=== PATIENT | female | born 1950 | race Caucasian/White ===

== ENCOUNTER 2018-09-07 10:27 | Emergency (ER) | payer MEDICARE, MEDICAID ==
[~2018-09-07] VITALS: Ht 157.5 cm; Wt 80.0 kg
[~2018-09-07 10:27] MED LIST: CARV-50 PO; COU4T PO; ESOM40CA PO; FENT1PAT11 TD; LYR25C PO; OXYC-658 PO; OXYC5CAP19 PO; TRAZ-218 PO; TRAZ-91 PO; WARF5TAB PO; ZOLP10TA PO; ZOLP5TAB8 PO
--- NOTE | 2018-09-07 10:39 | NUR ---
pt is resting quietly on gurney, resp even and unlabored, talking on phone with family
--- NOTE | 2018-09-07 11:20 | NUR ---
tova méndez pa at bedside to eval pt
--- NOTE | 2018-09-07 12:24 | NUR ---
unable to discharge pt at this time as she cannot get up due to pain to rt hip, pt has caregiver for 2 more hours and said she could get her neighbor to help, also has daughter that lives in the area "I don't know about her though", pt is unable to sit up or stand due to pain, Giana CHARLES aware, pt also said she has "low dose" percocet at home
[2018-09-07] MEDS ORDERED: HYDROcodone/acetaminophen 10/325mg tab PO ONE (12:35)
--- NOTE | 2018-09-07 12:42 | NUR ---
Giana Martin PA at bedside to discuss admission with pt, pt is unable to care for self as she normally would, pt is unable to sit up or stand without assist due to pain in rt hip.
[2018-09-07 13:20] LABS: BASOPHILS % (AUTO) 0.6 % (0-1); EOSINOPHILS # (AUTO) 0.1 X10'3 (0-0.9); EOSINOPHILS % (AUTO) 1.4 % (0-6); HEMATOCRIT 35.8 % (35.0-45.0); HEMOGLOBIN 11.5 g/dl (12.0-16.0); LYMPHOCYTES # (AUTO) 1.3 X10'3 (1.1-4.8); LYMPHOCYTES % (AUTO) 20.4 % (21-51); MEAN CORPUSCULAR HEMOGLOBIN 29.2 PG (27.0-31.0); MEAN CORPUSCULAR HGB CONC 32.2 % (33.0-36.5); MEAN CORPUSCULAR VOLUME 90.6 FL (78-98); MEAN PLATELET VOLUME 7.9 FL (7.4-10.4); MONOCYTES # (AUTO) 0.4 X10'3 (0-0.9); MONOCYTES % (AUTO) 6.1 % (2-12); NEUTROPHILS # (AUTO) 4.4 X10'3 (1.8-7.7); NEUTROPHILS % (AUTO) 71.5 % (42-75); PLATELET COUNT 268 X10'3 (140-440); RED BLOOD COUNT 3.94 X10'6 (4.20-5.60); RED CELL DISTRIBUTION WIDTH 14.4 % (11.5-14.5); WHITE BLOOD COUNT 6.2 X10'3 (4.5-11.0)
--- NOTE | 2018-09-07 13:28 | NUR ---
pt. medicated with pain medication and still 8/10 pain in rt. hip. Still unable to sit up or stand.
[2018-09-07 13:36] LABS: ALANINE AMINOTRANSFERASE 22 U/L (12-78); ALBUMIN 3.2 G/DL (3.4-5.0); ALBUMIN/GLOBULIN RATIO 0.9 (1.1-1.5); ALKALINE PHOSPHATASE 62 IU/L (46-116); ANION GAP 8 (8-16); ASPARTATE AMINO TRANSFERASE 23 U/L (10-37); BILIRUBIN,TOTAL 0.2 MG/DL (0.1-1.0); BLOOD UREA NITROGEN 13 MG/DL (7-18); BUN/CREATININE RATIO 12.4 (6.6-38.0); CALCIUM 8.9 MG/DL (8.5-10.1); CHLORIDE 105 MMOL/L (99-107); CREATININE 1.05 MG/DL (0.40-0.90); GLUCOSE 93 MG/DL (70-104); POTASSIUM 4.8 MMOL/L (3.5-5.1); SODIUM 142 MMOL/L (135-145); TOTAL CARBON DIOXIDE 29.4 MMOL/L (24-32); TOTAL PROTEIN 6.6 G/DL (6.4-8.2); eGFR 52 ML/MIN
--- NOTE | 2018-09-07 14:51 | NUR ---
PT. AMBULATED TO [facility] WITH ASSIST. WANTS TO GO HOME.
[2018-09-07 15:14] VITALS: BP 95/51
== END 2018-09-07 15:16 | disposition home or self-care (01) ==
LOC: ER 10:28
DX: G89.29 Other chronic pain (principal); M25.551 Pain in right hip; I25.2 Old myocardial infarction; I11.0 Hypertensive heart disease with heart failure; I50.9 Heart failure, unspecified; Z88.6 Allergy status to analgesic agent; Z91.018 Allergy to other foods; Z90.49 Acquired absence of other specified parts of digestive tract; Z98.61 Coronary angioplasty status; X50.1XXA Overexertion from prolonged static or awkward postures, initial encounter; Y93.89 Activity, other specified; Y92.89 Other specified places as the place of occurrence of the external cause; Y99.8 Other external cause status
CPT/HCPCS: 36415; 71045; 73502; 80053; 85025; 99284

== ENCOUNTER 2019-11-08 14:10 | Outpatient (CLI) | payer MEDICARE, MEDICAID ==
[~2019-11-08] VITALS: Ht 157.5 cm; Wt 89.8 kg
[~2019-11-08 14:10] MED LIST changes: -TRAZ-218 PO; +TRAZ-251 PO
[2019-11-08 14:56] LABS: BASOPHILS # (AUTO) 0.1 X10'3 (0-0.2); BASOPHILS % (AUTO) 0.7 % (0-1); EOSINOPHILS # (AUTO) 0.1 X10'3 (0-0.9); EOSINOPHILS % (AUTO) 1.5 % (0-6); LYMPHOCYTES # (AUTO) 1.6 X10'3 (1.1-4.8); LYMPHOCYTES % (AUTO) 20.6 % (21-51); MEAN CORPUSCULAR HEMOGLOBIN 28.7 PG (27.0-31.0); MEAN CORPUSCULAR HGB CONC 32.9 g/dL (33.0-36.5); MEAN CORPUSCULAR VOLUME 87.1 FL (78-98); MEAN PLATELET VOLUME 8.6 FL (7.4-10.4); MONOCYTES # (AUTO) 0.4 X10'3 (0-0.9); MONOCYTES % (AUTO) 5.7 % (2-12); NEUTROPHILS # (AUTO) 5.6 X10'3 (1.8-7.7); NEUTROPHILS % (AUTO) 71.5 % (42-75); PRE OP HEMATOCRIT 35.5 % (35.0-45.0); PRE OP HEMOGLOBIN 11.7 g/dL (12.0-16.0); PRE OP PLATELET COUNT 371 X10'3 (140-440); RED BLOOD COUNT 4.08 X10'6 (4.20-5.60); RED CELL DISTRIBUTION WIDTH 15.9 % (11.5-14.5)
[2019-11-08] MEDS ORDERED: OMEP-50 PO (14:57)
[2019-11-08] MEDS ORDERED: HYDR-4383 PO (14:57)
[2019-11-08 15:09] LABS: PRE OP INR 0.9 INR; PRE OP PROTIME 9.7 SECONDS (9.0-12.0)
[2019-11-08 15:20] LABS: ALBUMIN 3.2 G/DL (3.4-5.0); ALBUMIN/GLOBULIN RATIO 0.7 (1.1-1.5); ALKALINE PHOSPHATASE 80 IU/L (46-116); BLOOD UREA NITROGEN 42 MG/DL (7-18); BUN/CREATININE RATIO 24.3 (6.6-38.0); CALCIUM 9.3 MG/DL (8.5-10.1); CHLORIDE 105 MMOL/L (99-107); CREATININE 1.73 MG/DL (0.40-0.90); PRE OP ALT 22 U/L (30-65); PRE OP ANION GAP 9 (8-16); PRE OP AST 17 U/L (10-37); PRE OP BILIRUB, TOTAL 0.1 MG/DL (0.0-1.0); PRE OP GLUCOSE 102 MG/DL (70-104); PRE OP POTASSIUM 4.7 MMOL/L (3.4-5.1); PRE OP SODIUM 138 MMOL/L (135-145); TOTAL CARBON DIOXIDE 23.6 MMOL/L (24-32); TOTAL PROTEIN 7.7 G/DL (6.4-8.2); eGFR 29 ML/MIN
[2019-11-13] MEDS ORDERED: ringers solution, lacted 1,000 ML IV SCH (05:00)
[2019-11-13] MEDS ORDERED: famotidine 20mg tablet PO ONE (05:30)
[2019-11-13] MEDS ORDERED: VANCOMYCIN 1,500MG inj. 1,500 MG in normal saline 500ml IV soln 500 ML IV ONE (05:30)
[2019-11-13] MEDS ORDERED: clindamycin-Cleocin 900mg/D5W 50 ML IV ONE (05:30)
[2019-11-13] MEDS ORDERED: tranexamic acid inj. 1,000 MG in normal saline 100 ML IV ONE (05:30)
== END 2019-11-08 23:59 | disposition home or self-care (01) ==
LOC: PRE-OP 14:10 → EDSTATUS 11-13 07:30
PROVIDERS: ATTEND Orthopaedic Surgery
DX: Z01.818 Encounter for other preprocedural examination (principal); M16.11 Unilateral primary osteoarthritis, right hip; I50.9 Heart failure, unspecified; Z96.641 Presence of right artificial hip joint; Z98.890 Other specified postprocedural states
CPT/HCPCS: 36415; 80053; 85025; 85610; 85730; 86885; 86900; 86901; 86920; 87081

== ENCOUNTER 2020-01-19 16:28 | Emergency (ER) | payer MEDICARE, MEDICAID ==
[~2020-01-19] VITALS: Ht 157.5 cm; Wt 93.2 kg
[~2020-01-19 16:28] MED LIST changes: -CARV-50 PO; -COU4T PO; -ESOM40CA PO; -FENT1PAT11 TD; +HYDR-4383 PO; -LYR25C PO; +OMEP-50 PO; -OXYC-658 PO; -OXYC5CAP19 PO; -TRAZ-251 PO; -TRAZ-91 PO; -WARF5TAB PO; -ZOLP10TA PO; -ZOLP5TAB8 PO
[2020-01-19] MEDS ORDERED: HYDROcodone/acetaminophen 5mg/325mg tablet PO ONE (18:25)
[2020-01-19] MEDS ORDERED: ondansetron 4mg rapidly disintigrating tab PO ONE (18:25)
--- NOTE | 2020-01-19 19:11 | NUR ---
I ASKED THE TECHS TO ASK THE PA IF WE COULD PUT HER IN A BOOT INSTEAD OF A CAST DUE TO HER AGE AND THAT SHE USES A WALKER.
[2020-01-19 19:19] VITALS: BP 136/84
== END 2020-01-19 19:20 | disposition home or self-care (01) ==
LOC: ER 16:29
DX: S99.911A Unspecified injury of right ankle, initial encounter (principal); S09.90XA Unspecified injury of head, initial encounter; I11.0 Hypertensive heart disease with heart failure; I50.9 Heart failure, unspecified; I25.2 Old myocardial infarction; G89.29 Other chronic pain; Z98.890 Other specified postprocedural states; Z95.5 Presence of coronary angioplasty implant and graft; Z90.49 Acquired absence of other specified parts of digestive tract; Z88.0 Allergy status to penicillin; Z88.5 Allergy status to narcotic agent; W06.XXXA Fall from bed, initial encounter; Y93.89 Activity, other specified; Y92.89 Other specified places as the place of occurrence of the external cause; Y99.9 Unspecified external cause status
CPT/HCPCS: 70450; 72125; 73610; 73630; 99285

== ENCOUNTER 2020-04-22 12:53 | Emergency (ER) | payer MEDICARE, MEDICAID ==
[~2020-04-22] VITALS: Ht 160 cm; Wt 90.9 kg
[~2020-04-22 12:53] MED LIST changes: +ACET-2778 PO; +AMLO5TAB16 PO; +GABA-530 PO; +LISI10TA4 PO; +TRAZ-251 PO
[2020-04-22] MEDS ORDERED: metoprolol tartrate 50mg tablet PO ONE (14:25)
[2020-04-22] MEDS ORDERED: acetaminophen 325mg tablet PO ONE (14:30)
[2020-04-22 14:45] LABS: BASOPHILS # (AUTO) 0.1 X10'3 (0-0.2); BASOPHILS % (AUTO) 0.7 % (0-1); EOSINOPHILS # (AUTO) 0.2 X10'3 (0-0.9); EOSINOPHILS % (AUTO) 2.4 % (0-6); HEMATOCRIT 30.5 % (35.0-45.0); LYMPHOCYTES # (AUTO) 1.4 X10'3 (1.1-4.8); LYMPHOCYTES % (AUTO) 17.4 % (21-51); MEAN CORPUSCULAR HEMOGLOBIN 28.8 PG (27.0-31.0); MEAN CORPUSCULAR HGB CONC 32.9 g/dL (33.0-36.5); MEAN CORPUSCULAR VOLUME 87.5 FL (78-98); MEAN PLATELET VOLUME 8.6 FL (7.4-10.4); MONOCYTES # (AUTO) 0.5 X10'3 (0-0.9); MONOCYTES % (AUTO) 6.7 % (2-12); NEUTROPHILS % (AUTO) 72.8 % (42-75); PLATELET COUNT 279 X10'3 (140-440); RED BLOOD COUNT 3.48 X10'6 (4.20-5.60); RED CELL DISTRIBUTION WIDTH 16.3 % (11.5-14.5); WHITE BLOOD COUNT 8.2 X10'3 (4.5-11.0)
[2020-04-22 15:04] LABS: ALANINE AMINOTRANSFERASE 11 U/L (12-78); ALBUMIN 2.7 G/DL (3.4-5.0); ALBUMIN/GLOBULIN RATIO 0.7 (1.1-1.5); ALKALINE PHOSPHATASE 78 IU/L (46-116); ANION GAP 6 (8-16); ASPARTATE AMINO TRANSFERASE 9 U/L (10-37); BILIRUBIN,TOTAL 0.1 MG/DL (0.1-1.0); BLOOD UREA NITROGEN 18 MG/DL (7-18); BUN/CREATININE RATIO 13.6 (6.6-38.0); CALCIUM 8.7 MG/DL (8.5-10.1); CHLORIDE 109 MMOL/L (99-107); CREATININE 1.32 MG/DL (0.40-0.90); GLUCOSE 96 MG/DL (70-104); POTASSIUM 4.2 MMOL/L (3.5-5.1); SODIUM 141 MMOL/L (135-145); TOTAL CARBON DIOXIDE 25.7 MMOL/L (24-32); TOTAL PROTEIN 6.5 G/DL (6.4-8.2); eGFR 40 ML/MIN
[2020-04-22] MEDS ORDERED: lisinopril 10 MG tablet PO ONE (15:20)
[2020-04-22] MEDS ORDERED: amLODIPine 5mg tablet PO ONE (15:35)
[2020-04-22 15:51] VITALS: BP 147/83
== END 2020-04-22 15:52 | disposition home or self-care (01) ==
LOC: ER 12:54
DX: I11.0 Hypertensive heart disease with heart failure (principal); I50.9 Heart failure, unspecified; I25.2 Old myocardial infarction; G89.29 Other chronic pain; M25.562 Pain in left knee; R51 Headache; Z98.61 Coronary angioplasty status; Z90.49 Acquired absence of other specified parts of digestive tract; Z98.890 Other specified postprocedural states; Z88.0 Allergy status to penicillin; Z88.5 Allergy status to narcotic agent; Z88.8 Allergy status to other drugs, medicaments and biological substances; Z79.899 Other long term (current) drug therapy
CPT/HCPCS: 36415; 70450; 80053; 83880; 84443; 84484; 85025; 99284; 99285